=== PATIENT | female | born 1985 | race Caucasian/White ===

== ENCOUNTER 2017-07-03 08:33 | Emergency (ER) | payer OTHER ==
--- NOTE | 2017-07-03 09:40 | UC ---
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 Patient has history of the same and usually sees physical therapy with relief. Patient has an appointment on Saturday. She is hoping to get a small amount of muscle relaxer, which she hasn't taken in years, until she can get to her appointment on Saturday. Patient states her job involves her to be leaned over desk, stress on those muscles for most the day - History of Current Complaint Chief Complaint: UCBackPain Stated Complaint: BACK PAIN Time Seen by Provider: 07/03/17 09:39 Hx Obtained From: Patient Hx Last Menstrual Period: 06/04/17 ?: No Onset/Duration: Gradual Onset, Lasting Days - 4, Still Present Timing: Constant Severity Initially: Moderate Severity Currently: Moderate Pain Intensity: 8 Pain Scale Used: 0-10 Numeric Back Pain: Is Discrete @ - Left upper back left shoulder and left-sided neck Character: Spasmodic, Stiffness Aggravating Factor(s): Movement Alleviating Factor(s): Other - Usually massage and heat helps this time to no avail patient is seeking medical care in 2 days Associated Signs And Symptoms: Positive: Negative - Allergies/Home Medications Allergies/Adverse Reactions: Allergies Allergy/AdvReac Type Severity Reaction Status Date / Time amoxicillin Allergy Hives Verified 07/03/17 08:39 cefaclor [From Ceclor] Allergy Hives Verified 07/03/17 08:39 PMH/Surg Hx/FS Hx/Imm Hx Previously Healthy: No Neurological History: Migraine - Surgical History Surgical History: Yes Surgery Procedure, Year, and Place: appy - Family History Known Family History: Positive: None - Social History Occupation: Employed Full-time Lives: With Family Alcohol Use: Occasionally Substance Use Type: None Smoking Status (MU): Never Smoked Tobacco - Immunization History Most Recent Influenza Vaccination: 2016 Most Recent Tetanus Shot: 2015 Most Recent Pneumonia Vaccination: 2001 Review of Systems Constitutional: Negative Skin: Negative Eyes: Negative ENT: Negative Respiratory: Negative Cardiovascular: Negative Gastrointestinal: Negative Genitourinary: Negative Motor: Negative Neurovascular: Negative Musculoskeletal: Myalgia - left upper back, left side of neck Neurological: Negative Psychological: Negative Is Patient Immunocompromised?: No All Other Systems Reviewed And Are Negative: Yes Physical Exam Triage Information Reviewed: Yes Appearance: Well-Appearing, Well-Nourished, Pain Distress - ild Vital Signs: Initial Vital Signs Temp 98.2 F 07/03/17 08:43 Pulse 84 07/03/17 08:43 Resp 18 07/03/17 08:43 BP 132/94 07/03/17 08:43 Pulse Ox 100 07/03/17 08:43 Vital Signs Reviewed: Yes Eye Exam: Normal Eyes: Positive: Conjunctiva Clear ENT Exam: Normal ENT: Positive: Normal ENT inspection, Hearing grossly normal. Negative: Trismus , Muffled voice, Hoarse voice, Dental tenderness, Sinus tenderness Dental Exam: Normal Neck exam: Other Neck: Positive: No Lymphadenopathy, Tenderness @ - left side of neck. Negative : Nuchal Rigidity, Enlarged Nodes @ Respiratory Exam: Normal Respiratory: Positive: Chest non-tender, Lungs clear, Normal breath sounds, No respiratory distress, No accessory muscle use Cardiovascular Exam: Normal Cardiovascular: Positive: RRR, No Murmur, Pulses Normal, Brisk Capillary Refill Musculoskeletal Exam: Normal Musculoskeletal: Positive: Strength Intact, No Edema, ROM Limited @ - unable to turn neck to the left due to muscle spasm/pain Neurological Exam: Normal Psychological Exam: Normal Skin Exam: Normal Back Pain Course/Dx - Course Course Of Treatment: Continue heat and massage continue naproxen at Flexeril follow-up at appointment in 2 days as planned - Differential Dx/Diagnosis Provider Diagnoses: Left thoracic muscle spasm and left trapezius spasm Discharge - Sign-Out/Discharge Documenting (check all that apply): Discharge - Discharge Plan Condition: Stable Disposition: HOME Prescriptions: Cyclobenzaprine TAB* [Flexeril 10 MG TAB*] 10 mg PO TID PRN #15 tab PRN Reason: muscle spasm Patient Education Materials: Naproxen (By mouth), Muscle Spasm (ED), Thoracic Back Strain (ED) Referrals: Hannah Dave MD [Primary Care Provider] - 07/05/17 Additional Instructions: Follow with physical therapy and primary care doctor as planned - Billing Disposition and Condition Condition: STABLE Disposition: HOME
[2017-07-03 12:08] VITALS: BP 98/69
== END 2017-07-03 09:50 | disposition home or self-care (01) ==
LOC: UCEAST 08:33
DX: M62.830 Muscle spasm of back (principal); M62.838 Other muscle spasm; Z88.8 Allergy status to other drugs, medicaments and biological substances; Z88.3 Allergy status to other anti-infective agents
CPT/HCPCS: 99212; G0463

== ENCOUNTER 2018-03-27 03:12 | Emergency (ER) | payer OTHER ==
--- OUTSIDE RECORDS SUMMARY | 2018-03-27 03:23 | XMS REPORT | Continuity of Care Document ---
:1985 External Reference #:[id number] Author Name Amina Finley PA-C Address [address] [place] [address] [place] [address] Care Team Providers Name Role Phone Gaby Oreilly MD Care Team Information Lead Section Supervisor Unavailable Gaby Oreilly MD Primary Care Physician Unavailable Payers Type Date Identification Numbers Payment Provider Subscriber Policy Number: [id number] [employer] Number: [id number] [id number] PayID: [id number] [place] [address] Advance Directives Description No Information Available Problems Date Description Provider Status Onset: 03/18/2018 Globus sensation Amina Finley PA-C Active Onset: 03/18/2018 Abdominal pain Amina Finley PA-C Active Onset: 03/18/2018 Chest pain Amina Finley PA-C Active Onset: 09/24/2017 Irritable bowel syndrome Amina Finley PA-C Active characterized by constipation Onset: 06/27/2015 Intestinal malabsorption Gibran Restrepo M.D. Active Family History Description No Information Available Social History Type Date Description Comments Sex Unknown Tobacco Use Start: Unknown Patient has never smoked Smoking Status Reviewed: 03/18/18 Patient has never smoked Allergies, Adverse Reactions, Alerts Date Description Reaction Status Severity Comments 06/10/2015 Amoxicillin hives Active Moderate 06/10/2015 Ceclor hives Active Moderate Medications Medication Date Status Form Strength Qnty SIG Indications Ordering Provider Omeprazole 03/18/ Active Capsules 40mg 30caps 1 cap by F45.[address] ruiz daily Foor-Pess 30 minutes inMD before breakfast Xifaxan 09/24/ Active Tablets 550mg 42tabs 1 tablet by K90.49 Amina 2017 mouth 3 L. times daily [place] for 14 days , PA-C uses prn Levsin 09/24/ Active Tablets 0.125mg 90tabs 1-2 tabs PO K58.1 Amina 2017 Q 4 hours L. prn [place] abdominal , PA-C cramping Butalbital/Ric / Active Tablets 50-325-40m 1 by mouth Unknown taminophen/Caf 0000 g twice a day feine as needed headache max 2 days/wk Proair HFA / Active Aerosol 108(90Base 2 puffs by Unknown 0000 ) mcg/Act mouth every 4 hours as needed Valacyclovir / Active Tablets 500mg 2 tablets Unknown HCL 0000 by mouth three times a day for 7 days Miralax / Active Powder 3350NF 17 gm every Unknown 0000 day mixed w/ 8 oz water/juice Heaven / Active Tablets 3-0.02mg 1 by mouth Unknown 0000 every day Xifaxan 05/16/ Hx Tablets 550mg 20tabs 1 tab by Bertha 2017 - mouth twice [place], 09/24/ a day TURF KEEPER-C 2018 Xifaxan 08/01/ Hx Tablets 200mg 180tab take two Gibran Palacios 2016 - s tablets by Lauro 03/30/ mouth three M.D. 2016 times a day Clindacin-P 06/10/ Hx Swab 1% 69unit wipe face L70.0 Denilson 2016 - s 2x per day Gaby, 03/30/ after 2016 washing face Venlafaxine / Hx Tablets 37.5mg 1 by mouth Unknown HCL 0000 - every day 2017 Venlafaxine / Hx Tablets 75mg 1 by mouth Unknown HCL 0000 - every day 2017 Nexplanon / Hx Implant 68mg Unknown 0000 - 2015 Doxycycline / Hx Capsules 50mg one tablet Unknown Hyclate 0000 - bid x 2 03/30/ months for 2015 acne Immunizations CPT Code Status Date Vaccine Lot # [id number] Given 06/10/2015 Influenza Virus Vaccine, Quadrivalent, Split, Preservative Free Vital Signs Date Vital Result Comment 03/18/2018 12:57pm Height 60 inches 5'0" Weight 122.00 lb BP Systolic 122 mmHg BP Diastolic 82 mmHg Heart Rate 80 /min BMI (Body Mass Index) 23.8 kg/m2 09/24/2017 8:52am Height 60 inches 5'0" Weight 126.00 lb BP Systolic 122 mmHg BP Diastolic 81 mmHg Heart Rate 83 /min BMI (Body Mass Index) 24.6 kg/m2 05/16/2016 8:05am Height 60 inches 5'0" Weight 125.00 lb BMI (Body Mass Index) 24.4 kg/m2 03/30/2016 8:21am Height 60 inches 5'0" Weight 125.00 lb BP Systolic 122 mmHg BP Diastolic 74 mmHg BMI (Body Mass Index) 24.4 kg/m2 06/27/2015 9:47am Height 60 inches 5'0" Weight 120.00 lb BP Systolic 129 mmHg BP Diastolic 83 mmHg Heart Rate 95 /min BMI (Body Mass Index) 23.4 kg/m2 Results Test Date Facility Test Result H/L Range Note Celiac Panel! 06/27/19 [facility] Endomysial Abs Negative N Negative 1 16 Transglutaminase 06/27/19 [facility] Tissue <1.2 U/mL N 2 Iga/Igg 16 Transglutaminase IgA Ab Tissue Transglutaminase IgG Ab 1.4 U/mL N 3 Gliadin Igg/Iga AB 06/27/2015 [facility] [place] Gliadin IgG <10.0 U N 4 Gliadin IgA <10.0 U N 5 Laboratory test 06/10/2015 [facility] Thyroid Stim <pending> finding Hormone(!) Laboratory test 06/02/2015 [facility] Import Glucose 90 mg/dL 70-100 6 finding Lipid Profile 06/02/2015 [facility] Cholesterol 207 mg/dL 7 (Trig/Chol/HDL) HDL Cholesterol 58.0 mg/dL LDL Cholesterol 138 mg/dL 8 Triglycerides 57 mg/dL 1 Negative in normal individuals. May be negative in dermatitis herpatiformis or celiac disease patients adhering to a gluten free diet. ADDITIONAL INFORMATION Laboratory developed test. Test Performed by: [facility] - [address] [address] Dope Worker: Raciel Garcia II, M.D., Ph.D. 2 REFERENCE VALUE <4.0 (Negative) 3 REFERENCE VALUE <6.0 (Negative) Test Performed by: [place] [address] Dope Worker: Raciel Garcia II, M.D., Ph.D. 4 REFERENCE VALUE <20.0 (Negative) Test Performed by: [place] [address] Dope Worker: Raciel Garcia II, M.D., Ph.D. 5 REFERENCE VALUE <20.0 (Negative) 6 FASTING 7 Desirable <150 Borderline high 150-199 High 200-499 Very High >500 8 Desirable <200 Borderline high 200-239 High >239 Procedures Description No Information Available Encounters Type Date Location Provider Dx Diagnosis Office Visit 09/24/2017 Gastroenterology Amina England K58.1 Irritable bowel 8:[facility]a [facility], syndrome with PA-C constipation R14.1 Gas pain K90.49 Malabsorption due to intolerance, not elsewhere classified Z87.19 Personal history of other diseases of the digestive system Office 05/16/2016 Gastroenterology Bertha Marie8.1 Irritable bowel Visit 8:15a [facility], syndrome with TURF KEEPER-C constipation Office 03/30/2016 Gastroenterology Bertha Marie8.1 Irritable bowel Visit 8:30a [facility], syndrome with TURF KEEPER-C constipation Office 06/27/2015 Gastroenterology Gibran Restrepo, K90.4 Malabsorption due Visit 9:45a [facility] to intolerance, not elsewhere classified K58.9 Irritable bowel syndrome without diarrhea Plan of Treatment Future Appointment(s):03/26/2018 10:15 am - Amparo Duarte [facility] at [facility]03/18/2018 - MINH Esposito-CF45.8 Other somatoform disordersNew Medication:Omeprazole 40 mg - 1 cap by mouth daily 30 minutes before uqzbgfdreM92.89 Other chest painR10.10 Upper abdominal pain, unspecified
[2018-03-27] MEDS ORDERED: NS 0.9% 1000 ML* 1,000 ML IV ONE (03:39)
[2018-03-27] MEDS ORDERED: Metoclopramide IV* 5 MG/ML 2 ML VIAL IV SLOW PU ONE (03:39)
[2018-03-27] MEDS ORDERED: Pantoprazole IV* 40 MG IV ONE (03:39)
[2018-03-27] MEDS ORDERED: Morphine VIAL* 4 MG/ML VIAL (1 ml vial) IV ONE (03:39)
--- NOTE | 2018-03-27 03:39 | ED ---
Abdominal Pain/Female - HPI Summary HPI Summary: This patient is a 32 year old F presenting to [facility] upon referral from her cardiac nurse specialist with a chief complaint of epigastric pain since 16:00 1 day ago. Patient notes the pain radiates to her chest and back. Patient had an endoscopy performed on 03/26/18 at 13:00. The patient rates the pain 7/10 in severity. Symptoms aggravated by deep breaths and swallowing. Symptoms alleviated by nothing. Patient reports nausea. Patient denies SOB. Patient took Tylenol at 23:00 and levsin. Hx IBS. - History of Current Complaint Chief Complaint: EDGeneral Stated Complaint: GENERAL Time Seen by Provider: 03/27/18 03:24 Hx Obtained From: Patient Hx Last Menstrual Period: 06/04/17 Onset/Duration: Sudden Onset, Lasting Hours, Still Present Timing: Constant Severity Initially: Moderate Severity Currently: Moderate Pain Intensity: 7 Pain Scale Used: 0-10 Numeric Location: Epigastric Radiates: Yes Radiates to: Back, Chest Aggravating Factor(s): Deep Breaths, Other: - swallowing Alleviating Factor(s): Nothing Associated Signs and Symptoms: Positive: Chest Pain, Back Pain, Nausea Allergies/Adverse Reactions: Allergies Allergy/AdvReac Type Severity Reaction Status Date / Time amoxicillin Allergy Hives Verified 03/27/18 03:18 cefaclor [From Ceclor] Allergy Hives Verified 03/27/18 03:18 PMH/Surg Hx/FS Hx/Imm Hx Endocrine/Hematology History: Denies: Hx Diabetes, Hx Thyroid Disease Cardiovascular History: Denies: Hx Hypertension, Hx Pacemaker/ICD Respiratory History: Reports: Hx Asthma Denies: Hx Chronic Obstructive Pulmonary Disease (COPD) GI History: Reports: Hx Irritable Bowel Denies: Hx Ulcer History: Denies: Hx Dialysis, Hx Renal Disease Sensory History: Reports: Hx Contacts or Glasses Denies: Hx Hearing Aid Opthamlomology History: Reports: Hx Contacts or Glasses Neurological History: Reports: Hx Migraine Psychiatric History: Denies: Hx Panic Disorder - Surgical History Surgery Procedure, Year, and Place: APPENDECTOMY Infectious Disease History: No Infectious Disease History: Denies: Hx Hepatitis, Hx Human Immunodeficiency Virus (HIV), History Other Infectious Disease, Traveled Outside the [place] in Last 30 Days - Family History Known Family History: Negative: Diabetes - Social History Alcohol Use: Occasionally Substance Use Type: Reports: None Smoking Status (MU): Never Smoked Tobacco Review of Systems Negative: Fever Negative: Epistaxis Positive: Chest Pain Negative: Shortness Of Breath Positive: Abdominal Pain - epigastric pain, Nausea All Other Systems Reviewed And Are Negative: Yes Physical Exam - Summary Physical Exam Summary: VITAL SIGNS: Reviewed. GENERAL: Patient is a well-developed and nourished FEMALE who is lying comfortable in the stretcher. Patient is not in any acute respiratory distress. HEAD AND FACE: No signs of trauma. No ecchymosis, hematomas or skull depressions. No sinus tenderness. EYES: PERRLA, EOMI x 2, No injected conjunctiva, no nystagmus. EARS: Hearing grossly intact. Ear canals and tympanic membranes are within normal limits. MOUTH: Oropharynx within normal limits. NECK: Supple, trachea is midline, no adenopathy, no JVD, no carotid bruit, no c- spine tenderness, neck with full ROM. CHEST: Symmetric, no tenderness at palpation LUNGS: Clear to auscultation bilaterally. No wheezing or crackles. CVS: Regular rate and rhythm, S1 and S2 present, no murmurs or gallops appreciated. ABDOMEN: Soft, epigastric tenderness. No signs of distention. No rebound no guarding, and no masses palpated. Bowel sounds are normal. EXTREMITIES: FROM in all major joints, no edema, no cyanosis or clubbing. NEURO: Alert and oriented x 3. No acute neurological deficits. Speech is normal and follows commands. SKIN: Dry and warm Triage Information Reviewed: Yes Vital Signs On Initial Exam: Initial Vitals Temp Pulse Resp BP Pulse Ox 97.6 F 118 16 126/89 98 03/27/18 03:14 03/27/18 03:14 03/27/18 03:14 03/27/18 03:14 03/27/18 03:14 Vital Signs Reviewed: Yes Diagnostics - Vital Signs Vital Signs Temp Pulse Resp BP Pulse Ox 03/27/18 03:29 113 133/90 98 03/27/18 03:14 97.6 F 118 16 126/89 98 - Laboratory Result Diagrams: 03/27/18 03:54 03/27/18 03:54 Lab Statement: Any lab studies that have been ordered have been reviewed, and results considered in the medical decision making process. - CT CT Chest/Abd/Pelvis CT Interpretation Completed By: Radiologist Summary of CT Findings: no acute findings. Dr. Lance has reviewed this report. - EKG 03:43 Cardiac Rate: Tachycardia - at 109 bpm EKG Rhythm: Sinus Tachycardia ST Segment: Non-Specific - non-specific ST wave changes in inferior leads Summary of EKG Findings: sinus tachycardia at 109 bpm with non-specific ST wave changes in inferior leads Abdominal Pain Fem Course/Dx - Course Course Of Treatment: This patient is a 32 year old F presenting to [facility] upon referral from her cardiac nurse specialist with a chief complaint of epigastric pain since 16:00 1 day ago. Patient notes the pain radiates to her chest and back. Patient had an endoscopy performed on 03/26/18 at 13:00. The patient rates the pain 7/10 in severity. Symptoms aggravated by deep breaths and swallowing. Symptoms alleviated by nothing. Patient reports nausea. Patient denies SOB. Patient took Tylenol at 23:00 and levsin. Hx IBS. An EKG reveals sinus rhy 109 bpm. Non-specific ST wave changes in the inferior leads. Test results with no significant abnormalities. In the ED course the patient was given IV fluids, Protonix, morphine, and Reglan. CT Abd/Pelvis, per radiologist, reveals no acute findings. ED physician has reviewed this report. Patient will be discharged home with follow up from PCP. The patient is agreeable with this plan. - Diagnoses Provider Diagnoses: Chest pain Discharge - Sign-Out/Discharge Documenting (check all that apply): Patient Departure - Discharge Plan Condition: Stable Disposition: HOME Patient Education Materials: Chest Pain (ED) Referrals: Hannah Dave MD [Primary Care Provider] - 1 Day Additional Instructions: Follow up with primary care physician in 1-2 days. Return to the emergency department with any new or worsening symptoms. - Attestation Statements Document Initiated by Scribe: Yes Documenting Scribe: Jessie Phan Provider For Whom Scribe is Documenting (Include Credential): Chino Lance MD Scribe Attestation: Jessie Oh scribed for Chino Lance MD on 03/27/18 at 0623. Status of Scribe Document: Ready
[2018-03-27 04:16] LABS: INR 0.98 (0.77-1.02)
[2018-03-27 04:25] LABS: EGFR Non-African American 87.4 (>60)
[2018-03-27 04:40] LABS: ABS Basophils 0 10^3/ul (0-0.2); ABS Eosinophils 0.2 10^3/ul (0-0.6); ABS Lymphocytes 1.4 10^3/ul (1.0-4.8); ABS Monocytes 0.5 10^3/ul (0-0.8); ABS Neutrophils 4.9 10^3/ul (1.5-7.7); ABS Nucleated RBC 0 10^3/ul; Eosinophil % 3.3 %; Hematocrit 37 % (35-47); Hemoglobin 12.9 g/dl (12.0-16.0); Mean Corpuscular HGB Conc 35 g/dl (31-36); Mean Corpuscular Hemoglobin 29 pg (27-31); Mean Corpuscular Volume 84 fL (80-97); Nucleated Red Blood Cells % 0; Platelet Count 189 10^3/ul (150-450); Red Blood Count 4.42 10^6/ul (4.00-5.40); Red Cell Distribution Width 12 % (10.5-15); White Blood Count 7.1 10^3/ul (3.5-10.8)
[2018-03-27] MEDS ORDERED: Iodixanol 320 (CONTRAST) 100 ML SDV IV ONE (05:17)
[2018-03-27] MEDS ORDERED: Lidocaine 2% VISCOUS* 15 ML UDC PO ONE (06:23)
[2018-03-27] MEDS ORDERED: Al Hydrox/Mg Hydrox/Simet LIQ* 30 ML UDC PO ONE (06:23)
[2018-03-27 06:53] VITALS: BP 122/87
== END 2018-03-27 06:53 | disposition home or self-care (01) ==
LOC: ED 03:12
DX: R07.89 Other chest pain (principal); R10.13 Epigastric pain; R11.0 Nausea; R00.0 Tachycardia, unspecified; Z88.1 Allergy status to other antibiotic agents; Z88.0 Allergy status to penicillin
CPT/HCPCS: 36415; 71260; 74177; 80053; 82150; 83690; 83735; 84484; 84702; 85025; 85379; 85610; 85730; 93005; 96361; 96374; 96375; 99283; A9270-GY; J2270; J2765; Q9967

== ENCOUNTER 2018-10-10 14:47 | Emergency (ER) | payer OTHER ==
--- OUTSIDE RECORDS SUMMARY | 2018-10-10 14:53 | XMS REPORT | Continuity of Care Document ---
:1985 External Reference #:[id number] Author Name ArtemGillian cooper Care Team Providers Name Role Phone Hannah Dave MD Primary Care Physician Unavailable Payers Date Identification Numbers Payment Provider Subscriber Policy Number: [id number] [employer] Mireille Blair Group Number: [id number] [address] PayID: [id number] [place] [address] Problems Active Problems Provider Date Migraine David Gaspar M.D. Onset: 09/13/2015 Irritable bowel syndrome characterized by Hannah Dave M.D. Onset: 2017 constipation Indigestion Hannah Dave M.D. Onset: 04/16/2018 Degeneration of cervical intervertebral disc Hannah Dave M.D. Onset: 05/2018 Family History Date Family Member(s) Observation Comments General Diabetes Type II General Breast Cancer General Alzheimer's Disease General Hypothyroidism General Heart Disease Father No Current Problems Father 72 Mother ovarian failure age 34 Mother 64 Asthma /allergies Premature ovarian failure at age 34 Siblings None Social History Type Date Description Comments Sex Unknown Marital Status Significant Other Lives With Alone Occupation Professor Occupation post [employer] Tobacco Use Start: Unknown Never Smoked Cigarettes Smoking Status Reviewed: 10/07/18 Never Smoked Cigarettes ETOH Use Occasionally consumes 1 glass of wine per alcohol week Tobacco Use Start: Unknown Patient has never smoked Recreational Drug Use Denies Drug Use Exercise Type/Frequency Exercises regularly Exercise Type/Frequency yoga, gym works with a strength field sales trainer 2 times a wks Allergies, Adverse Reactions, Alerts Active Allergies Reaction Severity Comments Date Amoxicillin hives Moderate 06/10/2015 Ceclor hives Moderate 06/10/2015 Medications Active Medications SIG Qnty Indications Ordering Date Provider Cyclobenzaprine HCL 1 by mouth every 30tabs M54.12 aDvid Head 01/22/2018 10mg day as needed for Aj Gaspar Tablets neck or occipital pain Miralax 17 gm every day Unknown [id number] Powder mixed w/ 8 oz water/juice daily Ventolin HFA 2 puffs by mouth 16gm Hannah Jolie, 108(90Base) four times a day as M.DAndrew mcg/Act Aerosol needed, in case of infection /rarely Heaven 1 by mouth every Unknown 3-0.02mg Tablets day Butalbital/Acetaminoph take 1 tablet by 16tabs David Head en/Caffeine mouth twice a day Aj Gaspar 50-325-40mg as needed for Tablets headache maximum daily dose=2 tablets max 2 days per week Levsin/SL take 1 tablets Unknown 0.125mg Tablets sublingually every Sub 4 hours as needed for secretions Amitriptyline HCL 3 at bed Unknown 10mg Tablets History Medications Cipro 1 tablet PO q12 14tabs K35.80 Hussein Aguilar, 02/16/2016 - 500mg Tablets hrs CARLOS HERNANDEZ Unknown Flagyl 1 tablet PO 21tabs K35.80 Hussein Aguilar, 02/16/2016 - 500mg Tablets q8hrs CARLOS HERNANDEZ Unknown Tramadol HCL 1-2 tablets 30tabs Poncho Tran NP 02/13/2016 - 50mg every 8 hours as Unknown Tablets needed for pain. Venlafaxine HCL ER 1 by mouth every 90caps David Head 11/16/2015 - day Aj Gaspar 11/19/2016 37.5mg Caps ER 24HR Venlafaxine HCL ER 1 by mouth every 90caps David Head 11/16/2015 - 75mg day Aj Gaspar 10/10/2017 Caps ER 24HR Clindacin-P wipe face 2x per 69units L70.0 Gaby Oreilly, 06/10/2015 - 1% Swab day after M.DAndrew 11/19/2016 washing face Venlafaxine HCL 1 by mouth every 90tabs David Head - 37.5mg day Aj Gaspar 11/16/2015 Tablets Venlafaxine HCL 1 by mouth every 90tabs David S. - 75mg day Aj Gaspar 11/16/2015 Tablets Proair HFA 2 puffs by mouth Unknown - 108(90Base) every 4 hours as 10/10/2017 mcg/Act Aerosol needed Valacyclovir HCL 2 tablets by Unknown - 500mg mouth three 11/19/2016 Tablets times a day for 7 days Nexplanon Unknown - 68mg Implant 09/12/2015 Mircette 1 by mouth every Unknown - 0.15-0.02/0.01 day 02/13/2016 mg (21/) Tablets Xifaxan 1 by mouth three Unknown - 400mg Tablets times a day as 07/08/2018 needed Excedrin Migraine as needed Unknown - 07/08/2018 [phone] Tablets Omeprazole 1 by mouth every Unknown - 40mg day 07/08/[address] Zhang Oil bid Unknown - Oil 07/08/2018 Immunizations CPT Code Status Date Vaccine Lot # 50932 Given 06/10/2015 Influenza Virus Vaccine, Quadrivalent, Split, [id number] Preservative Free [id number] Given 04/09/2013 Tdap - Tetanus/Diptheria/Acellular Pertussis Vital Signs Date Vital Result Comment 10/07/2018 8:23am Height 59.7 inches 4'11.70" Weight 114.00 lb Heart Rate 72 /min BP Systolic 116 mmHg BP Diastolic 76 mmHg BMI (Body Mass Index) 22.5 kg/m2 07/09/2018 10:01am Height 59.7 inches 4'11.70" Weight 114.00 lb Heart Rate 82 /min BP Systolic 118 mmHg BP Diastolic 80 mmHg BMI (Body Mass Index) 22.5 kg/m2 04/16/2018 8:53am Height 59.7 inches 4'11.70" Weight 115.00 lb Heart Rate 102 /min BP Systolic Sitting 120 mmHg BP Diastolic Sitting 80 mmHg Body Temperature 98.3 F O2 % BldC Oximetry 98 % BMI (Body Mass Index) 22.7 kg/m2 01/22/2018 3:04pm Height 59.7 inches 4'11.70" Weight 125.00 lb Heart Rate 88 /min BP Systolic 114 mmHg BP Diastolic 84 mmHg Respiratory Rate 14 /min BMI (Body Mass Index) 24.7 kg/m2 10/30/2017 11:42am Height 59.7 inches 4'11.70" Weight 128.00 lb Heart Rate 68 /min BP Systolic 112 mmHg BP Diastolic 72 mmHg Respiratory Rate 16 /min BMI (Body Mass Index) 25.2 kg/m2 10/15/2017 10:10am Height 59.7 inches 4'11.70" Weight 128.00 lb Heart Rate 74 /min BP Systolic Sitting 128 mmHg BP Diastolic Sitting 80 mmHg BMI (Body Mass Index) 25.2 kg/m2 10/10/2017 10:54am Height 59.7 inches 4'11.70" Weight 128.00 lb Heart Rate 79 /min BP Systolic Sitting 104 mmHg BP Diastolic Sitting 64 mmHg O2 % BldC Oximetry 94 % BMI (Body Mass Index) 25.2 kg/m2 11/19/2016 3:27pm Height 59 inches 4'11" Weight 128.00 lb Heart Rate 80 /min BP Systolic Sitting 116 mmHg BP Diastolic Sitting 80 mmHg Respiratory Rate 14 /min BMI (Body Mass Index) 25.9 kg/m2 03/01/2016 1:02pm Heart Rate 84 /min BP Systolic 108 mmHg BP Diastolic 62 mmHg Respiratory Rate 16 /min Body Temperature 97.4 F 02/16/2016 2:02pm Height 60 inches 5'0" Weight 125.00 lb Heart Rate 84 /min BP Systolic 124 mmHg BP Diastolic 70 mmHg Respiratory Rate 16 /min Body Temperature 98.9 F BMI (Body Mass Index) 24.4 kg/m2 02/13/2016 11:33am Weight 129.00 lb Heart Rate 115 /min BP Systolic 122 mmHg BP Diastolic 90 mmHg Body Temperature 98.0 F 09/13/2015 11:02am Height 59 inches 4'11" Weight 124.00 lb Heart Rate 74 /min BP Systolic Sitting 120 mmHg BP Diastolic Sitting 78 mmHg Respiratory Rate 16 /min BMI (Body Mass Index) 25.0 kg/m2 06/10/2015 12:55pm Height 59 inches 4'11" Weight 124.25 lb Heart Rate 81 /min BP Systolic 106 mmHg BP Diastolic 78 mmHg Body Temperature 97.5 F O2 % BldC Oximetry 98 % BMI (Body Mass Index) 25.1 kg/m2 Results Test Date Facility Test Result H/L Range Note CBC Auto Diff 03/27/2018 [facility] White Blood 7.1 10^3/uL N 3.5-10.[address] [place] [address] [phone] Red Blood Count 4.42 10^6/uL N 4.00-5.40 Hemoglobin 12.9 g/dL N 12.0-16.0 Hematocrit 37 % N 35-47 Mean Corpuscular Volume 84 fL N 80-97 Mean Corpuscular Hemoglobin 29 pg N 27-31 Mean Corpuscular HGB Conc 35 g/dL N 31-36 Red Cell Distribution Width 12 % N 10.5-15 Platelet Count 189 10^3/uL N 150-450 Mean Platelet Volume 7.0 fL Low 7.4-10.4 Abs Neutrophils 4.9 10^3/uL N 1.5-7.7 Abs Lymphocytes 1.4 10^3/uL N 1.0-4.8 Abs Monocytes 0.5 10^3/uL N 0-0.8 Abs Eosinophils 0.2 10^3/uL N 0-0.6 Abs Basophils 0 10^3/uL N 0-0.2 Abs Nucleated RBC 0 10^3/uL Granulocyte % 69.1 % Lymphocyte % 20.0 % Monocyte % 7.1 % Eosinophil % 3.3 % Basophil % 0.5 % Nucleated Red Blood Cells % 0 Comp Metabolic Panel 03/27/2018 [facility] Sodium 135 mmol/L N 135-[address] [place] [address] [phone] Potassium 3.4 mmol/L Low 3.5-5.0 Chloride 102 mmol/L N 101-111 Co2 Carbon Dioxide 22 mmol/L N 22-32 Anion Gap 11 mmol/L N 2-11 Glucose 109 mg/dL High 70-100 Blood Urea Nitrogen 11 mg/dL N 6-24 Creatinine 0.77 mg/dL N 0.51-0.95 BUN/Creatinine Ratio 14.3 N 8-20 Calcium 9.6 mg/dL N 8.6-10.3 Total Protein 7.5 g/dL N 6.4-8.9 Albumin 4.2 g/dL N 3.2-5.2 Globulin 3.3 g/dL N 2-4 Albumin/Globulin Ratio 1.3 N 1-3 Total Bilirubin 0.60 mg/dL N 0.2-1.0 Alkaline Phosphatase 40 U/L N 34-104 Alt 10 U/L N 7-52 Ast 16 U/L N 13-39 Egfr Non- 87.4 >60 Egfr 105.8 >60 1 Laboratory test 03/27/2018 [facility] Magnesium 1.9 mg/dL N 1.9-2.[address] [place] [address] [phone] Amylase 51 U/L N 29-103 Lipase 11 U/L N 11.0-82.0 Troponin-I (TnI) 0.00 ng/mL <0.04 2 HCG < 0.60 mIU/mL 3 Inr/Protime 03/27/2018 [facility] Inr 0.98 N 0.77-1.[address] [place], [place] [id number] [phone] Laboratory test 03/27/2018 [facility] Partial 26.9 seconds N 26.0-36.[address] [place] [address] PTT [phone] D Dimer Quantitative < 200 ng/mL N Less Than 230 4 Laboratory test 03/26/2018 [facility] Clotest SEE RESULT [address] [place], [place] [id number] [phone] Laboratory test 03/26/2018 [facility] Surgical Pathology SEE RESULT [address] [place], [place] [id number] [phone] Lipid Profile 06/10/2017 [facility] Triglycerides 97 mg/dL 7 (Trig/Chol/HDL) [place] [address] [phone] Cholesterol 235 mg/dL 8 HDL Cholesterol 79.9 mg/dL 9 LDL Cholesterol 136 mg/dL 10 Comp Metabolic Panel 06/10/2017 [facility] Sodium 134 mmol/L N 133-[address] [place] [address] [phone] Potassium 3.8 mmol/L N 3.5-5.0 Chloride 100 mmol/L Low 101-111 Co2 Carbon Dioxide 25 mmol/L N 22-32 Anion Gap 9 mmol/L N 2-11 Glucose 88 mg/dL N 70-100 Blood Urea Nitrogen 17 mg/dL N 6-24 Creatinine 0.75 mg/dL N 0.51-0.95 BUN/Creatinine Ratio 22.7 High 8-20 Calcium 9.7 mg/dL N 8.6-10.3 Total Protein 7.4 g/dL N 6.4-8.9 Albumin 4.3 g/dL N 3.2-5.2 Globulin 3.1 g/dL N 2-4 Albumin/Globulin Ratio 1.4 N 1-3 Total Bilirubin 0.50 mg/dL N 0.2-1.0 Alkaline Phosphatase 39 U/L N 34-104 Alt 10 U/L N 7-52 Ast 16 U/L N 13-39 Egfr Non- 90.7 >60 Egfr 116.7 >60 11 Laboratory test 02/22/2016 [facility] Surgical SEE RESULT [address] [place] [address] [phone] Urine Culture And 02/13/2016 [facility] Urine Culture SEE RESULT [address] [place] [address] [phone] Urinalysis Profile 02/13/2016 [facility] Urine Color Yellow N [address] [place] [address] [phone] Urine Appearance Cloudy N Urine Specific Sigurd 1.010 N 1.010-1.030 Urine pH 7.0 N 5-9 Urine Urobilinogen Negative N Negative Urine Ketones Negative N Negative Urine Protein Negative N Negative Urine Leukocytes 3+ Abnormal Negative Urine Blood 2+ Abnormal Negative Urine Nitrite Negative N Negative Urine Bilirubin Negative N Negative Urine Glucose Negative N Negative Urine White Blood Cell 2+(11-20/hpf) Abnormal Absent Urine Red Blood Cell 1+(3-5/hpf) Abnormal Absent Urine Bacteria 1+ Abnormal Absent Urine Squamous Epithelial Cell Present Abnormal Absent Laboratory test finding 02/13/2016 [facility] Lipase 33 U/L N 11.0-82.[address] [place] [address] [phone] Amylase 63 U/L N 29-103 Comp Metabolic 02/13/2016 [facility] Blood Urea 13 mg/dL N 6- [address] [place] [address] [phone] Albumin 4.0 g/dL N 3.2-5.2 Total Bilirubin 0.30 mg/dL N 0.2-1.0 Sodium 134 mmol/L N 133-145 Potassium 4.0 mmol/L N 3.5-5.0 Chloride 101 mmol/L N 101-111 Co2 Carbon Dioxide 28 mmol/L N 22-32 Anion Gap 5 mmol/L N 2-11 Glucose 89 mg/dL N 70-100 Creatinine 0.71 mg/dL N 0.51-0.95 BUN/Creatinine Ratio 18.3 N 8-20 Calcium 9.5 mg/dL N 8.6-10.3 Total Protein 6.9 g/dL N 6.4-8.9 Globulin 2.9 g/dL N 2-4 Albumin/Globulin Ratio 1.4 N 1-3 Alkaline Phosphatase 41 U/L N 34-104 Alt 13 U/L N 7-52 Ast 20 U/L N 13-39 Egfr Non- 97.3 N >60 Egfr 125.2 N >60 14 CBC Auto Diff 02/13/2016 [facility] White Blood 8.4 10^3/uL N 3.5-10.[address] [place] [address] [phone] Red Blood Count 4.30 10^6/uL N 4.0-5.4 Hemoglobin 12.6 g/dL N 12.0-16.0 Hematocrit 37 % N 35-47 Mean Corpuscular Volume 86 fL N 80-97 Mean Corpuscular Hemoglobin 29 pg N 27-31 Mean Corpuscular HGB Conc 34 g/dL N 31-36 Red Cell Distribution Width 12 % N 10.5-15 Platelet Count 198 10^3/uL N 150-450 Mean Platelet Volume 7 um3 Low 7.4-10.4 Abs Neutrophils 3.7 10^3/uL N 1.5-7.7 Abs Lymphocytes 1.7 10^3/uL N 1.0-4.8 Abs Monocytes 0.5 10^3/uL N 0-0.8 Abs Eosinophils 2.4 10^3/uL High 0-0.6 Abs Basophils 0 10^3/uL N 0-0.2 Abs Nucleated RBC 0 10^3/uL N Granulocyte % 43.7 % N 38-83 Lymphocyte % 20.7 % Low 25-47 Monocyte % 6.4 % N 1-9 Eosinophil % 28.6 % High 0-6 Basophil % 0.6 % N 0-2 Nucleated Red Blood Cells % 0 N Laboratory test 12/13/2015 [facility] Monospot Negative N Negative [address] [place], [place] [address] [phone] Rissa Aguilar 12/13/2015 [facility] Ebv Capsid Ag Negative N Negative Comprehensive [address] [place] [place] [address] [phone] Ebv Capsid Ag IgM Ab Negative N Negative Rissa-Aguilar Nuclear Antigen Negative N Negative Rissa-Aguilar Virus Interp See Comment N 16 Rapid Influenza 12/13/2015 [facility] Influenza A NEGATIVE N Negative 17 A & B Molecular [address] [place] [address] [phone] Influenza B Molecular NEGATIVE N Negative Laboratory 12/13/2015 [facility] Rapid Strep Negative N Negative 18 test finding [address] [place] [address] [phone] Laboratory 06/10/2015 [facility] TSH (Thyroid 1.06 ?IU/mL N 0.34-5.60 test finding [address] Stim [place]orm) [place] [address] [phone] Lipid Profile 06/02/2015 [facility] Triglycerides 57 mg/dL N 19, (Trig/Chol/HD [address] 20 L) [place] [address] [phone] Cholesterol 207 mg/dL N 21 HDL Cholesterol 58.0 mg/dL N 22 LDL Cholesterol 138 mg/dL N 23 Laboratory test finding 06/02/2015 [facility] Glucose 90 mg/dL N 70-[address] [place] [address] [phone] 1 Because ethnic data is not always readily available, this report includes an eGFR for both -Americans and non- Americans. The National Kidney Disease Education Program (NKDEP) does not endorse the use of the MDRD equation for patients that are not between the ages of 18 and 70, are , have extremes of body size, muscle mass, or nutritional status, or are non- or non-. According to the National Kidney Foundation, irrespective of diagnosis, the stage of the disease is based on the level of kidney function: Stage Description GFR(mL/min/1.73 m(2)) 1 Kidney damage with normal or decreased GFR 90 2 Kidney damage with mild decrease in GFR 60-89 3 Moderate decrease in GFR 30-59 4 Severe decrease in GFR 15-29 5 Kidney failure <15 (or dialysis) 2 Troponin-I testing on Plasma Separator Tubes (PST) has a known false positive rate of 0.20-0.40%. All positive troponins reflex immediate secondary confirmatory testing. 3 <5.0 Negative 5.0 - 25.0 Indeterminate (Repeat testing recommended after 72 hours) >25.0 Positive Perimenopausal women can display HCG levels of up to 20 mIU/mL 4 Please note: The following may produce a false positive D Dimer test: - Rheumatoid factor greater than 60 IU/ml - Plasma hemoglobin greater than 0.05 gm/dl - Bilirubin greater than 50 mg/dl - Lipids greater than 1000 mg/dl - FDP greater than 20 ug/ml 5 SEE RESULT BELOW Name: MIREILLE BLAIR : [address]: Amparo Duarte MD Acct: [id number] Unit: [id number] AGE: 32 Location: ENDO Re03/26/18 SEX: F Status: DEP REF SPEC: [id number] SALO: 03/26/18-1223 [facility] DR: Amparo Chapman MD REQ: [id number] RECD: 03/26/18 STATUS: BHAVNA KHOURY DR: Hannah Dave MD _ SOURCE: [facility] ORDERED: Clotest Procedure Result Reported Site Clotest Final 03/27/18823 ML Clotest Negative * ML - Main Lab . END OF REPORT DEPARTMENT OF PATHOLOGY, [address] [place] [address] Scottie Hernandez M.D. Director [facility] # [id number] 6 SEE RESULT BELOW Name: MIREILLE BLAIR : [address]: Amparo Duarte MD Acct: [id number] Unit: [id number] AGE: 32 Location: ENDO Re03/26/18 SEX: F Status: DEP REF SPEC: [id number] SALO: 03/26/18-[address]: Amparo Chapman MD REQ: [id number] RECD: 03/26/18-134 STATUS: DENISE KHOURY DR: Hannah Dave MD _ ORDERED: LEVEL 4/4 FINAL DIAGNOSIS 1. Duodenum, biopsy: -- Benign small intestinal mucosa with no significant pathologic abnormalities. -- No evidence of villous blunting or increased intraepithelial lymphocytes. 2. Gastroesophageal junction, biopsy: -- Benign squamous mucosa with mild erosive changes. -- Minute fragment of columnar-type mucosa with no evidence of intestinal metaplasia or dysplasia. 3. Esophagus, mid, biopsy: -- Benign squamous mucosa with mild erosive changes. -- No evidence of eosinophilic esophagitis. 4. Esophagus, proximal, biopsy: -- Benign squamous mucosa with mild erosive changes. -- No evidence of eosinophilic esophagitis. CLINICAL HISTORY Globus, epigastric POST-OPERATIVE DIAGNOSIS EGD: esophagus - unknown mild furrowing, biopsy proximal and mid; irregular z line - biopsy; gastric - normal, biopsy, ETHAN test; duodenum - normal, biopsy to rule out celiac CONTINUED ON NEXT PAGE DEPARTMENT OF PATHOLOGY, [address] [place] [address] Scottie Hernandez M.D. Director [facility] # [id number] RUN DATE: 03/27/18 [facility] LAB LIVE PAGE 2 Patient: MIREILLE BLAIR [id number] (Continued) GROSS DESCRIPTION (Continued) GROSS DESCRIPTION 1. The specimen is received in formalin labeled, Duodenal Biopsies, and consists of a 0.8 x 0.7 by up to 0.2 cm aggregate of chang-pink irregular soft tissue fragments which is submitted entirely in one cassette. 2. The specimen is received in formalin labeled, GE Junction Biopsies, and consists of a 0.6 x 0.4 x 0.1 cm aggregate of chang-white irregular soft tissue fragments which is submitted entirely in one cassette. 3. The specimen is received in formalin labeled, Mid Esophagus Biopsies, and consists of a 0.5 x 0.3 x 0.1 cm aggregate of chang-white irregular soft tissue fragments which is submitted entirely in one cassette. 4. The specimen is received in formalin labeled, Proximal Esophagus Biopsies, and consists of a 0.6 x 0.4 x 0.1 cm aggregate of translucent chang-pink irregular soft tissue fragments which is submitted entirely in one cassette. Signed by and Reported on: Jessie Dewey MD 03/27/18 1205 END OF REPORT DEPARTMENT OF PATHOLOGY, [address] [place] [address] Scottie Hernandez M.D. Director [facility] # [id number] Desirable: <150 Borderline High: 150-199 High: 200-499 Very High: >500 8 Desirable: <200 Borderline High: 200-239 High: >239 9 Low: <40 Desirable: 40-60 High: >60 10 Desirable: <100 Near Optimal: 100-129 Borderline High: 130-159 High: 160-189 Very High: >189 11 Because ethnic data is not always readily available, this report includes an eGFR for both -Americans and non- Americans. The National Kidney Disease Education Program (NKDEP) does not endorse the use of the MDRD equation for patients that are not between the ages of 18 and 70, are , have extremes of body size, muscle mass, or nutritional status, or are non- or non-. According to the National Kidney Foundation, irrespective of diagnosis, the stage of the disease is based on the level of kidney function: Stage Description GFR(mL/min/1.73 m(2)) 1 Kidney damage with normal or decreased GFR 90 2 Kidney damage with mild decrease in GFR 60-89 3 Moderate decrease in GFR 30-59 4 Severe decrease in GFR 15-29 5 Kidney failure <15 (or dialysis) 12 SEE RESULT BELOW Name: MIREILLE BLAIR : [address]: Hussein Aguilar MD Acct: [id number] Unit: [id number] AGE: 30 Location: [place] [address]- Re02/21/16 Dis: 02/22/16 SEX: F Status: DIS Rossy SPEC: [id number] SALO: 02/22/16-[address]: Fermin Diaz MD REQ: [id number] RECD: 02/22/16 STATUS: SOUT _ ORDERED: LEVEL III FINAL DIAGNOSIS Appendix, appendectomy: -- Acute appendicitis. PRE-OPERATIVE DIAGNOSIS Appendicitis GROSS DESCRIPTION The specimen is received in formalin labeled, Appendix, and consists of a 9.1 cm appendix with moderate attached mesoappendix. The external diameter ranges from 0.5 cm to 0.7 cm. The serosa is predominantly glistening smooth chang-saunders with a few focal fibromembranous adhesions along the proximal aspect. The lumen averages 0.1 cm. The mucosa is glistening chang-white and the wall thickness averages 0.1 cm. Cotton Baler sections, one cassette. Signed (signature on file) Jessie Dewey MD 02/28 1312 END OF REPORT * ML=Testing performed at Main Lab DEPARTMENT OF PATHOLOGY, [address] [place] [address] Scottie Hernandez M.D. Director [facility] # [id number] 13 SEE RESULT BELOW Name: RUTH BLAIRHRYN : [address]: Poncho Tran NP Acct: [id number] Unit: [id number] AGE: 30 Location: [facility] Re02/13/16 SEX: F Status: REG REF SPEC: [id number] SALO: 02/13/[address]: Poncho Tran NP REQ: [id number] RECD: 02/13/16 STATUS: COMP _ SOURCE: URINE SPDESC: ORDERED: Urine Culture Procedure Result Reported Site Urine Culture Final 02/14/16- 1608 ML No Growth (<1,000 CFU/mL) * ML - MAIN LAB ([facility]) . END OF REPORT * ML=Testing performed at Main Lab DEPARTMENT OF PATHOLOGY, [address] [place] [address] Scottie Hernandez M.D. Director [facility] # [id number] 14 Because ethnic data is not always readily available, this report includes an eGFR for both -Americans and non- Americans. The National Kidney Disease Education Program (NKDEP) does not endorse the use of the MDRD equation for patients that are not between the ages of 18 and 70, are , have extremes of body size, muscle mass, or nutritional status, or are non- or non-. According to the National Kidney Foundation, irrespective of diagnosis, the stage of the disease is based on the level of kidney function: Stage Description GFR(mL/min/1.73 m(2)) 1 Kidney damage with normal or decreased GFR 90 2 Kidney damage with mild decrease in GFR 60-89 3 Moderate decrease in GFR 30-59 4 Severe decrease in GFR 15-29 5 Kidney failure <15 (or dialysis) 15 Would you like an EBV if Monospot is Negative?: Y 16 Results suggest no prior exposure to Rissa-Aguilar Virus. However, a second serum specimen should be tested in 10-14 days if clinically indicated. ADDITIONAL INFORMATION In most populations, at least 90% of the adult population will have been infected with EBV sometime in the past and therefore, will be positive for anti-VCA/IgG and anti- EBNA. Antibodies to EBNA develop 6-8 weeks after primary infection and remain present for life. Presence of VCA/ IgM antibodies indicates recent primary infection with EBV. Test Performed by: [place] [address] Carton Catcher: Raciel Garcia II, M.D., Ph.D. 17 Back Up Machine Operator: [id number] HAWKINS 18 Back Up Machine Operator: [id number] HAWKINS Due to the increased sensitivity of molecular testing, reflex cultures are no longer performed. 19 FASTING 20 Desirable <150 Borderline high 150-199 High 200-499 Very High >500 21 Desirable <200 Borderline high 200-239 High >239 22 Low <40 Desirable: 40-60 High: >60 23 Desirable: <100 mg/dL Near Optimal: 100-129 mg/dL Borderline High: 130-159 mg/dL High: 160-189 mg/dL Very High: >189 mg/dL 24 FASTING Procedures Date Code Description Status 02/21/2018 18063 Nerve Conduction 07-08 Studies Completed 02/21/2018 40055 Needle Electromyography Complete, Five Or More Muscles Completed Studied 10/10/2017 68507 Admin & Interp Of Health Risk Assessment w/ Patient Completed 02/22/2016 77172 Laparoscopy, Surgical, Appendectomy Completed 04/15/2014 602917606 Diabetic Retinal Eye Exam Completed Encounters Type Date Location Provider Dx Diagnosis Office Visit 07/09/2018 [place] Michaelle Gaspar M54.2 Cervicalgia 10:00a [facility] G43.009 Migraine w/o aura, not intractable, w/o status migrainosus Office Visit 04/16/2018 [facility] K30 Functional 8:50a [facility] Dave M.D. dyspepsia I70.0 Atherosclerosis of aorta Office Visit 01/22/2018 3:00p Way[facility] Gaspar M54.2 Cervicalgia [facility] M54.12 Radiculopathy, cervical region G43.009 Migraine w/o aura, not intractable, w/o status migrainosus Office Visit 10/30/2017 [place] David Head G43.009 Migraine w/o aura, 11:45a Neurologic Aj Gaspar not intractable, [facility] w/o status migrainosus M50.322 Other cervical disc degeneration at C5-C6 level Office Visit 10/15/2017 9:45a [facility] David Head M54.2 Cervicalgia Aj Gaspar G43.009 Migraine w/o aura, not intractable, w/o status migrainosus Office 10/10/2017 [facility] Internal Hannah Dave Z00.00 Encntr for Visit 11:10a Medicine-Evgeny Rocha general adult medical exam w/o abnormal findings Office 11/19/2016 [place] [facility] David Head G43.009 Migraine w/o Visit 3:30p [facility] Wendie Gaspar M.D. aura, not intractable, w/o status migrainosus Office 02/21/2016 [facility] K35.80 Unspecified Visit 7:00a [facility] MINH White acute appendicitis Office 02/16/2016 [facility] K35.80 Unspecified Visit 2:15p [facility] CARLOS HERNANDEZ acute appendicitis R10.31 Right lower quadrant pain Office Visit 02/13/2016 11:40a [facility] Internal [place] Tran, R10.31 Right lower Medicine - Delfin TOOLROOM CHECKER quadrant pain Office Visit 09/13/2015 10:00a [place] [facility] David Head G43.009 Migraine w/o [facility] Wendie Gaspar M.D. aura, not intractable, w/o status migrainosus Office Visit 06/10/2015 1:00p [facility] Internal Gaby Z00.01 Encounter for Medicine - Delfin Oreilly M.D. general adult medical exam w abnormal findings L70.0 Acne vulgaris N92.6 Irregular menstruation, unspecified K58.0 Irritable bowel syndrome with diarrhea G43.009 Migraine w/o aura, not intractable, w/o status migrainosus Z23 Encounter for immunization R63.5 Abnormal weight gain Plan of Treatment Future Appointment(s):10/15/2018 9:10 am - Hannah Dave M.D. at [facility] Internal Medicine - [id number] - David Gaspar M.D.G43.009 Migraine without aura, not intractable, without status migraFollow up:refer to [facility], Dr. Lise Noriega MD fax [phone] PRN
[2018-10-10 15:04] VITALS: BP 136/90
--- NOTE | 2018-10-10 15:35 | UC ---
Back Pain HPI - HPI Summary HPI Summary: Ms. Blair felt some stiffness on the left side of her back when she got yp this AM. It has now developed into a tight pain that is aggravated by certain movements. She denies dysuria - History of Current Complaint Chief Complaint: UCBackPain Stated Complaint: BACK PAIN Time Seen by Provider: 10/10/18 15:15 Hx Obtained From: Patient Hx Last Menstrual Period: 09/13/18 Onset/Duration: Gradual Onset Timing: Constant Severity Initially: Moderate Pain Intensity: 7 Character: Stiffness Aggravating Factor(s): Movement Alleviating Factor(s): Position Associated Signs And Symptoms: Positive: Negative - Allergies/Home Medications Allergies/Adverse Reactions: Allergies Allergy/AdvReac Type Severity Reaction Status Date / Time amoxicillin Allergy Hives Verified 10/10/18 15:04 cefaclor [From [facility] [place]] Allergy Hives Verified 10/10/18 15:04 Home Medications: Home Medications Amitriptyline TAB* [Elavil TAB*] 30 mg PO BEDTIME 10/10/18 [History Confirmed ] PMH/Surg Hx/FS Hx/Imm Hx Previously Healthy: Yes - Surgical History Surgical History: Yes Surgery Procedure, Year, and Place: APPENDECTOMY, Feb 2018 w/ [place] - Family History Known Family History: Negative: Diabetes - Social History Alcohol Use: Weekly Alcohol Amount: 2 Substance Use Type: None Smoking Status (MU): Never Smoked Tobacco - Immunization History Most Recent Influenza Vaccination: 2015 Most Recent Tetanus Shot: 2014 Most Recent Pneumonia Vaccination: 2001 Review of Systems All Other Systems Reviewed And Are Negative: Yes Physical Exam Triage Information Reviewed: Yes Appearance: Well-Appearing Vital Signs: Initial Vital Signs Temp 98.5 F 10/10/18 14:59 Pulse 121 10/10/18 14:59 Resp 18 10/10/18 14:59 BP 136/90 10/10/18 14:59 Pulse Ox 100 10/10/18 14:59 Vital Signs Reviewed: Yes Respiratory: Positive: Lungs clear Cardiovascular: Positive: Pulses Normal Abdomen Description: Positive: Nontender Musculoskeletal Exam: Normal Neurological Exam: Normal Back Pain Course/Dx - Course Course Of Treatment: Her U/a had a spot of microscopic blood so I ordered a renal U/S which was negative for obstruction. We discussed the possibility of a stone that was not obstructing and causing the symptoms. We both agreed that the risks of CT scan were unwarranted at this time. We will treat symptomatically and see what is going to develop. She requested an antibiotic prescription just in case she developed symptoms over the weekend and I assented. - Differential Dx/Diagnosis Provider Diagnosis: Back pain Discharge - Sign-Out/Discharge Documenting (check all that apply): Patient Departure All imaging exams completed and their final reports reviewed: Yes - Discharge Plan Condition: Stable Disposition: HOME Prescriptions: Nitrofurantoin Monohyd/M-Cryst [Macrobid 100 mg Capsule] 100 mg PO BID #14 cap Patient Education Materials: Back Pain (ED) Referrals: Hannah Dave MD [Primary Care Provider] - - Billing Disposition and Condition Condition: STABLE Disposition: Home
== END 2018-10-10 17:08 | disposition home or self-care (01) ==
LOC: UCEAST 14:47
DX: M54.9 Dorsalgia, unspecified (principal)
CPT/HCPCS: 76775; 81003; 84702; 99212; G0463